=== PATIENT | female | born 1960 | race Caucasian/White ===

== ENCOUNTER 2018-04-29 12:15 | Emergency (ER) | payer OTHER ==
[~2018-04-29] VITALS: Ht 160 cm; Wt 71.7 kg
[2018-04-29 12:38] VITALS: BP 139/76
[2018-04-29] MEDS: IBUPROFEN 400 MG TAB PO ONE (14:00)
[2018-04-29 14:45] VITALS: BP 127/60
== END 2018-04-29 14:45 | disposition home or self-care (01) ==
LOC: MED 12:15
DX: F43.9 Reaction to severe stress, unspecified (principal); R07.89 Other chest pain; M79.1 Myalgia; Z90.49 Acquired absence of other specified parts of digestive tract; Z90.710 Acquired absence of both cervix and uterus
CPT/HCPCS: 71045; 93005; 99284; Q0092; 81002; 81025